=== PATIENT | female | born 2000 | race Caucasian/White ===

== ENCOUNTER 2020-05-15 12:36 | Outpatient (REF) | payer OTHER, SELFPAY ==
[2020-05-16 09:49] LABS: HBs Antibody, Quant 179.7 mIU/mL (See Note); Hepatitis B Surface Ab Positive (See Note)
[2020-05-16 10:41] LABS: Measles IgG Antibody Positive (See Note); Mumps Antibody IgG Positive (See Note); Rubella IgG Ab (UVM) Positive (See Note); Varicella IgG Antibody Positive (See Note)
== END 2020-05-15 12:56 ==
LOC: LBN 12:36
PROVIDERS: PCP Nurse Practitioner Family; Visit Provider Nurse Practitioner Family
DX: Z11.59 Encounter for screening for other viral diseases (principal); Z01.84 Encounter for antibody response examination
CPT/HCPCS: 86706; 86787; 86735; 86762; 86765

== ENCOUNTER 2020-06-14 04:01 | Outpatient (CLI) | payer OTHER, SELFPAY ==
[2020-06-16 14:06] LABS: TB Interpretation Negative (Negative); TB1 Ag minus Nil 0.06 IU/ml; TB2 Ag minus Nil 0.11 IU/mL
== END 2020-06-14 04:21 ==
PROVIDERS: PCP Nurse Practitioner Family; Visit Provider Nurse Practitioner Family
DX: Z11.1 Encounter for screening for respiratory tuberculosis (principal)
CPT/HCPCS: 36415; 86480

== ENCOUNTER 2020-10-26 22:45 | Outpatient (REF) | payer OTHER, SELFPAY ==
[2020-10-26 23:38] LABS: Bilirubin Negative (Negative); Blood Moderate (Negative); Clarity Clear (Clear); Glucose Negative (Negative); Ketones Negative (Negative); Leukocyte Esterase Trace (Negative); Nitrite Positive (Negative); Specific Gravity >= 1.030 (1.005-1.025); Urobilinogen 0.2 EU/dL (Up TO 0.2); pH 6.5 (5-8)
[2020-10-26 23:46] LABS: Bacteria Many HPF (Negative); C & S Indicated? C&S Done As Ordered; Casts Negative LPF (Negative); Crystals Negative HPF (Negative); Epithelial Cells Moderate HPF (Negative); Mucus Negative (Negative)
== END 2020-10-26 23:05 ==
LOC: LBN 22:45
PROVIDERS: PCP Nurse Practitioner Family; Visit Provider Nurse Practitioner Family
DX: N30.90 Cystitis, unspecified without hematuria (principal); M54.5 Low back pain
CPT/HCPCS: 87077; 81003; 81015; 87086; 87186